=== PATIENT | female | born 1990 | race Caucasian/White ===

== ENCOUNTER 2023-06-02 11:54 | Emergency (ER) | payer OTHER, SELFPAY ==
[2023-06-02] VITALS (10 sets, daily range): BP systolic 105–125; BP diastolic 50–67; PULSE 101–132; RESP 17–23; TEMP 37.1; O2SAT 95–98; BMI 29.8
--- NOTE | 2023-06-02 12:42 | DI.CT.S_ITS ---
PROCEDURE: CT HEAD/BRAIN WO CON INDICATIONS: worst headache of life, patient is 14 weeks TECHNIQUE: Noncontrast 4.5 mm thick angled axial sections acquired from the foramen magnum to the vertex, with coronal and sagittal reformats. For radiation dose reduction, the following was used: automated exposure control, adjustment of mA and/or kV according to patient size. COMPARISON: None. FINDINGS: Image quality: Diagnostic. Evaluation is mildly limited by streak artifact from metallic earrings. CSF spaces: Basal cisterns are patent. No extra-axial fluid collections. Ventricles are normal in size and shape. Brain: No midline shift. No intracranial masses or hemorrhage. Linton-white matter interface is normal. Skull and face: Calvarium and visualized facial bones are intact, without suspicious lesions. Sinuses: Visualized sinuses and mastoids are clear. IMPRESSION: Evaluation is mildly limited by streak artifact from metallic earrings. No acute intracranial pathology. Dictated by: Henry Mcneal M.D. on 06/02/2023 at 13:34 Approved by: Henry Mcneal M.D. on 06/02/2023 at 13:37
[2023-06-02] MEDS: METOCLOPRAMIDE 10 MG/2 ML INJ IV (12:50)
[2023-06-02] MEDS: SODIUM CHLORIDE 0.9% 1,000 ML 1000 ML IV (12:51)
[2023-06-02 12:56] LABS: Add Manual Diff / Slide Review NO; Basophils Absolute Auto 0 /uL (0-100); Basophils Percent Auto 0.3 % (0-2); Eosinophils Absolute Auto 0 /uL (0-450); Eosinophils Percent Auto 0.2 % (2-4); Hematocrit 34.9 % (36-46); Hemoglobin 11.9 g/dL (12.0-16.0); Lymphocytes Absolute Auto 200 /uL (1100-4500); Lymphocytes Percent Auto 3.9 % (25-40); Mean Corpuscular Hemoglobin 29.2 PG (26-34); Mean Corpuscular Volume 85.7 fL (80-100); Monocytes Absolute Auto 200 /uL (0-900); Monocytes Percent Auto 3.6 % (3-14); Neutrophils Absolute Auto 5800 /uL (1500-7000); Platelet Count 129 X10^3/uL (150-400); Red Blood Cell Count 4.07 X10^6/uL (4.0-5.2); Red Cell Distribution Width 14.2 % (11.6-14.8); White Blood Cell Count 6.4 X10^3/uL (4.5-11.0)
--- NOTE | 2023-06-02 13:00 | PC.NURSE ---
Patient reports worst headache of her life, woek with symptoms around 0300. Patient states she had no relief with total of 1000mg tylenol. Patient is 14wks . Discussion with provider, and this RN about risks of CT during . Pt consulted with Mdiwife who encouraged CT. Patient agreeable.
--- NOTE | 2023-06-02 13:03 | ED.HA ---
HPI - Headache <Cristina Acuna PA-C - Last Filed: 06/03/23 11:48> General Chief Complaint: Headache Stated Complaint: severe back pain, pressure on head, dizzy spells Time Seen by Provider: 06/02/23 12:15 Mode of arrival: Wheelchair History of Present Illness HPI Narrative: Patient is a 32-year-old female who presents after sudden onset of worst headache of my life and low back pain at 3:00 a.m. this morning. She has taken Tylenol (500mg) twice since then without any improvement. She drank almost a gallon of water this morning. She reports no ameliorating positions or factors. She endorses mild photophobia, denies tinnitus, blurry vision or double vision. She also endorses a feeling of numbness in her upper thighs. She denies loss of control of bowel or bladder but feels weak in her lower extremities, although was able to walk. She has experienced some nausea but no vomiting. Prior to this she was feeling well and has had no complications in her , seen by intranet support Martha. She denies any history of frequent headaches nor any history of preeclampsia. She denies any abdominal cramping, pain or vaginal discharge or bleeding. She has no urinary symptoms. She denies chest pain, shortness of breath, cough with hemoptysis. No history of blood clots and no lower extremity edema or tenderness. Related Data Allergies Allergy/AdvReac Type Severity Reaction Status Date / Time amoxicillin Allergy Verified 06/02/23 12:00 latex Allergy Verified 06/02/23 12:00 Review of Systems <Cristina Acuna PA-C - Last Filed: 06/03/23 11:48> Review of Systems ROS Unobtainable: All systems reviewed & are unremarkable except as noted in HPI and below Patient History <Cristina Acuna PA-C - Last Filed: 06/03/23 11:48> Social History Smoking Status: Former smoker Smoking Status: Former smoker Exam <Cristina Acuna PA-C - Last Filed: 06/03/23 11:48> Narrative Exam Narrative: GENERAL: 32 year old patient appears stated age. Well-developed patient, in moderate distress. NEURO: Alert and oriented x3, mood/affect normal, normal speech, normal cognition. CN's (II-XII) grossly intact,. No gross motor deficit, 5/5 strength throughout, no gross sensory loss, normal movement, no pronator drift, normal gait. HEAD: Atraumatic. Normocephalic. EYES: Pupils equal round and reactive. Extraocular motions intact. No scleral icterus. No injection or drainage. ENT: Nose without bleeding or purulent drainage. Airway patent. NECK: Trachea midline. Non tender CARDIOVASCULAR: Regular rate and rhythm without murmurs, gallops, or rubs. RESPIRATORY: Clear to auscultation. Breath sounds equal bilaterally. No wheezes, rales, or rhonchi. GASTROINTESTINAL: Abdomen soft, non-tender, nondistended. EXTREMITIES: No edema or joint tenderness. Calves are supple and nontender, nonedematous. SKIN: No rash or erythema of visible areas Initial Vital Signs Initial Vital Signs: Vital Signs Temperature 98.7 F 06/02/23 12:01 Pulse Rate 132 H 06/02/23 12:01 Respiratory Rate 18 06/02/23 12:01 Blood Pressure 125/60 06/02/23 12:01 Pulse Oximetry 97 06/02/23 12:01 Oxygen Delivery Method Room Air 06/02/23 12:01 <Sania Limon DO - Last Filed: 06/07/23 07:25> Initial Vital Signs Initial Vital Signs: Vital Signs Temperature 98.7 F 06/02/23 12:01 Pulse Rate 132 H 06/02/23 12:01 Respiratory Rate 18 06/02/23 12:01 Blood Pressure 125/60 06/02/23 12:01 Pulse Oximetry 97 06/02/23 12:01 Oxygen Delivery Method Room Air 06/02/23 12:01 Scores <Cristina Acuna PA-C - Last Filed: 06/03/23 11:48> Wells' Criteria for PE Clinical signs and symptoms of DVT: No PE is #1 Dx or equally likely: No Heart rate > 100: Yes Immobilization at least 3 days or surg in previous 4 weeks: No History of PE or DVT: No Hemoptysis: No Malignancy w/Treatment within 6 months or palliative: No Wells' PE Score total: 1.5 <Sania Limon DO - Last Filed: 06/07/23 07:25> Wells' Criteria for PE Wells' PE Score total: 1.5 Course <Cristina Acuna PA-C - Last Filed: 06/03/23 11:48> Orders Ordered: Discontinued Medications Acetaminophen (Acetaminophen 325 Mg Tablet) 975 mg PO NOW ONE Stop: 06/02/23 14:24 Last Admin: 06/02/23 14:44 Dose: 975 mg Documented By: DAQUAN Sodium Chloride (Normal Saline 0.9%) 1,000 mls @ 1,000 mls/hr IV BOLUS ONE Stop: 06/02/23 13:35 Last Infusion: 06/02/23 13:52 Dose: Infused Documented By: Admin: 06/02/23 12:51 Dose: 1,000 mls/hr Documented By: ROGELIO Ketorolac Tromethamine (Ketorolac 30 Mg/Ml Vial) 15 mg IV NOW ONE Stop: 06/02/23 14:50 Last Admin: 06/02/23 15:09 Dose: 15 mg Documented By: MICHELL Metoclopramide HCl (Metoclopramide 10 Mg/2 Ml Inj) 10 mg IV NOW ONE Stop: 06/02/23 12:37 Last Admin: 06/02/23 12:50 Dose: 10 mg Documented By: ROGELIO Morphine Sulfate (Morphine 2 Mg/Ml Inj) 2 mg IV NOW ONE Stop: 06/02/23 13:46 Last Admin: 06/02/23 13:49 Dose: 2 mg Documented By: DAQUAN Vital Signs Vital signs: Vital Signs - 8 hr 06/02/23 12:01 06/02/23 12:12 06/02/23 12:12 Temperature 98.7 F Pulse Rate 132 H 124 H Respiratory Rate 18 17 Blood Pressure 125/60 121/63 Pulse Oximetry 97 97 Oxygen Delivery Method Room Air 06/02/23 12:30 06/02/23 12:30 06/02/23 13:06 Temperature Pulse Rate 118 H 120 H Respiratory Rate 21 Blood Pressure 108/54 L Pulse Oximetry 97 98 Oxygen Delivery Method 06/02/23 13:30 06/02/23 13:30 06/02/23 14:00 Temperature Pulse Rate 110 H 103 H Respiratory Rate 21 21 Blood Pressure 105/55 L Pulse Oximetry 98 97 Oxygen Delivery Method Room Air 06/02/23 14:00 06/02/23 14:30 06/02/23 14:30 Temperature Pulse Rate 104 H Respiratory Rate 23 Blood Pressure 118/67 118/62 Pulse Oximetry 96 Oxygen Delivery Method 06/02/23 15:00 06/02/23 15:00 06/02/23 15:30 Temperature Pulse Rate 105 H Respiratory Rate 23 Blood Pressure 114/58 L 116/56 L Pulse Oximetry 97 Oxygen Delivery Method 06/02/23 15:30 06/02/23 16:00 06/02/23 16:00 Temperature Pulse Rate 101 H 104 H Respiratory Rate 22 21 Blood Pressure 110/50 L Pulse Oximetry 95 96 Oxygen Delivery Method <Sania Limon DO - Last Filed: 06/07/23 07:25> Orders Ordered: Discontinued Medications Acetaminophen (Acetaminophen 325 Mg Tablet) 975 mg PO NOW ONE Stop: 06/02/23 14:24 Last Admin: 06/02/23 14:44 Dose: 975 mg Documented By: DAQUAN Sodium Chloride (Normal Saline 0.9%) 1,000 mls @ 1,000 mls/hr IV BOLUS ONE Stop: 06/02/23 13:35 Last Infusion: 06/02/23 13:52 Dose: Infused Documented By: Admin: 06/02/23 12:51 Dose: 1,000 mls/hr Documented By: ROEGLIO Ketorolac Tromethamine (Ketorolac 30 Mg/Ml Vial) 15 mg IV NOW ONE Stop: 06/02/23 14:50 Last Admin: 06/02/23 15:09 Dose: 15 mg Documented By: MICHELL Metoclopramide HCl (Metoclopramide 10 Mg/2 Ml Inj) 10 mg IV NOW ONE Stop: 06/02/23 12:37 Last Admin: 06/02/23 12:50 Dose: 10 mg Documented By: ROGELIO Morphine Sulfate (Morphine 2 Mg/Ml Inj) 2 mg IV NOW ONE Stop: 06/02/23 13:46 Last Admin: 06/02/23 13:49 Dose: 2 mg Documented By: DAQUAN Vital Signs Vital signs: Vital Signs - 8 hr 06/02/23 12:01 06/02/23 12:12 06/02/23 12:12 Temperature 98.7 F Pulse Rate 132 H 124 H Respiratory Rate 18 17 Blood Pressure 125/60 121/63 Pulse Oximetry 97 97 Oxygen Delivery Method Room Air 06/02/23 12:30 06/02/23 12:30 06/02/23 13:06 Temperature Pulse Rate 118 H 120 H Respiratory Rate 21 Blood Pressure 108/54 L Pulse Oximetry 97 98 Oxygen Delivery Method 06/02/23 13:30 06/02/23 13:30 06/02/23 14:00 Temperature Pulse Rate 110 H 103 H Respiratory Rate 21 21 Blood Pressure 105/55 L Pulse Oximetry 98 97 Oxygen Delivery Method Room Air 06/02/23 14:00 06/02/23 14:30 06/02/23 14:30 Temperature Pulse Rate 104 H Respiratory Rate 23 Blood Pressure 118/67 118/62 Pulse Oximetry 96 Oxygen Delivery Method 06/02/23 15:00 06/02/23 15:00 06/02/23 15:30 Temperature Pulse Rate 105 H Respiratory Rate 23 Blood Pressure 114/58 L 116/56 L Pulse Oximetry 97 Oxygen Delivery Method 06/02/23 15:30 06/02/23 16:00 06/02/23 16:00 Temperature Pulse Rate 101 H 104 H Respiratory Rate 22 21 Blood Pressure 110/50 L Pulse Oximetry 95 96 Oxygen Delivery Method MDM - Headache <Cristina Acuna PA-C - Last Filed: 06/03/23 11:48> Lab Data 06/02/23 12:47 06/02/23 12:47 Labs: Lab Results 06/02/23 Range/Units 12:47 WBC 6.4 (4.5-11.0) X10^3/uL RBC 4.07 (4.0-5.2) X10^6/uL Hgb 11.9 L (12.0-16.0) g/dL Hct 34.9 L (36-46) % MCV 85.7 (80-100) fL MCH 29.2 (26-34) PG MCHC 34.0 (30-36) % RDW 14.2 (11.6-14.8) % Plt Count 129 L (150-400) X10^3/uL Neut % (Auto) 92.0 H (50-75) % Lymph % (Auto) 3.9 L (25-40) % Duchesne % (Auto) 3.6 (3-14) % Eos % (Auto) 0.2 L (2-4) % Baso % (Auto) 0.3 (0-2) % Neut # (Auto) 5800 (4060-4638) /uL Lymph # (Auto) 200 L (1000-2171) /uL Duchesne # (Auto) 200 (0-900) /uL Eos # (Auto) 0 (0-450) /uL Baso # (Auto) 0 (0-100) /uL Sodium 133 L (137-145) mmol/L Potassium 3.7 (3.4-5.1) mmol/L Chloride 105 (98-107) mmol/L Carbon Dioxide 23 (22-32) mmol/L BUN 5 L (7-17) mg/dL Creatinine 0.45 L (0.52-1.04) mg/dL Estimated GFR > 60 (>60) mL/min BUN/Creatinine Ratio 11.1 (6-22) Glucose 82 (70-100) mg/dL Calcium 9.1 (8.4-10.2) mg/dL Total Bilirubin 0.4 (0.2-1.3) mg/dL AST 18 (14-36) IU/L ALT 17 (<35) IU/L Alkaline Phosphatase 49 (38-126) U/L Total Protein 7.5 (6.3-8.2) g/dL Albumin 4.2 (3.5-5.0) g/dL Globulin 3.3 (1.7-4.1) g/dL Albumin/Globulin Ratio 1.3 (1.0-2.8) Urine Dip Bedside Urine Glucose Negative Bedside Urine Bilirubin - Negative Bedside Urine Ketone - Negative Urine Specific Wiley 1.020 Bedside Urine Occult Blood - Negative Bedside Urine pH 6.0 Bedside Urine Protein - Negative Bedside Urine Urobilinogen - Negative Bedside Urine Nitrite - Negative Bedside Urine Leukocytes - Negative Esterase Imaging Data CT scan - head: Radiologist's Impression: PROCEDURE: CT HEAD/BRAIN WO CON INDICATIONS: worst headache of life, patient is 14 weeks TECHNIQUE: Noncontrast 4.5 mm thick angled axial sections acquired from the foramen magnum to the vertex, with coronal and sagittal reformats. For radiation dose reduction, the following was used: automated exposure control, adjustment of mA and/or kV according to patient size. COMPARISON: None. FINDINGS: Image quality: Diagnostic. Evaluation is mildly limited by streak artifact from metallic earrings. CSF spaces: Basal cisterns are patent. No extra-axial fluid collections. Ventricles are normal in size and shape. Brain: No midline shift. No intracranial masses or hemorrhage. Linton-white matter interface is normal. Skull and face: Calvarium and visualized facial bones are intact, without suspicious lesions. Sinuses: Visualized sinuses and mastoids are clear. IMPRESSION: Evaluation is mildly limited by streak artifact from metallic earrings. No acute intracranial pathology. Dictated by: Henry Mcneal M.D. on 06/02/2023 at 13:34 Approved by: Henry Mcneal M.D. on 06/02/2023 at 13:37 [facility] Narrative Medical decision making narrative: Multiple etiologies for patient's symptoms considered including, but not limited to: Subarachnoid hemorrhage, migraine, tension headache, meningitis, low back pain, cauda equina, PE Patient has a normal neuro exam but complains of worst headache of life. Advised CT scan of the head, which patient is agreeable to after discussion with her partner and intranet support. Head CT is negative. No red flags for cauda equina, epidural abscess or hematoma. Patient acutely tachycardic on arrival, seems to improve with resting in a dark room and has improved slightly after IV fluids. Wells Criteria for PE is 1.5, low risk. PE considered in the differential given tachycardia and but patient has no chest pain, shortness of breath, lower extremity swelling, history of DVT or other risk factors. Patient's heart rate improves after pain control. I suspect tachycardia related to pain. Labs without clinically significant abnormality; mild thrombocytopenia noted, urine without evidence of infection, mild anemia, sodium 133. Pain better after tylenol, ketorolac (safe before 20 weeks ), morphine, reglan. No indication for OB ultrasound today. Strict return precautions advised. Patient's symptoms improved over duration of stay with above-stated therapies. Findings and discharge diagnosis discussed with patient/family followed by verbalization of understanding Return precautions discussed with patient/family whom verbalize understanding of diagnosis and plan <Sania Limon, DO - Last Filed: 06/07/23 07:25> Lab Data Labs: Lab Results 06/02/23 Range/Units 12:47 WBC 6.4 (4.5-11.0) X10^3/uL RBC 4.07 (4.0-5.2) X10^6/uL Hgb 11.9 L (12.0-16.0) g/dL Hct 34.9 L (36-46) % MCV 85.7 (80-100) fL MCH 29.2 (26-34) PG MCHC 34.0 (30-36) % RDW 14.2 (11.6-14.8) % Plt Count 129 L (150-400) X10^3/uL Neut % (Auto) 92.0 H (50-75) % Lymph % (Auto) 3.9 L (25-40) % Duchesne % (Auto) 3.6 (3-14) % Eos % (Auto) 0.2 L (2-4) % Baso % (Auto) 0.3 (0-2) % Neut # (Auto) 5800 (2005-5640) /uL Lymph # (Auto) 200 L (2094-5758) /uL Duchesne # (Auto) 200 (0-900) /uL Eos # (Auto) 0 (0-450) /uL Baso # (Auto) 0 (0-100) /uL Sodium 133 L (137-145) mmol/L Potassium 3.7 (3.4-5.1) mmol/L Chloride 105 (98-107) mmol/L Carbon Dioxide 23 (22-32) mmol/L BUN 5 L (7-17) mg/dL Creatinine 0.45 L (0.52-1.04) mg/dL Estimated GFR > 60 (>60) mL/min BUN/Creatinine Ratio 11.1 (6-22) Glucose 82 (70-100) mg/dL Calcium 9.1 (8.4-10.2) mg/dL Total Bilirubin 0.4 (0.2-1.3) mg/dL AST 18 (14-36) IU/L ALT 17 (<35) IU/L Alkaline Phosphatase 49 (38-126) U/L Total Protein 7.5 (6.3-8.2) g/dL Albumin 4.2 (3.5-5.0) g/dL Globulin 3.3 (1.7-4.1) g/dL Albumin/Globulin Ratio 1.3 (1.0-2.8) Urine Dip Bedside Urine Glucose Negative Bedside Urine Bilirubin - Negative Bedside Urine Ketone - Negative Urine Specific Wiley 1.020 Bedside Urine Occult Blood - Negative Bedside Urine pH 6.0 Bedside Urine Protein - Negative Bedside Urine Urobilinogen - Negative Bedside Urine Nitrite - Negative Bedside Urine Leukocytes - Negative Esterase Discharge Plan Departure Patient Disposition: Home Clinical Impression: Headache Qualifiers: Headache type: tension-type Headache chronicity pattern: acute headache Intractability: not intractable Qualified Code(s): G44.209 - Tension-type headache, unspecified, not intractable Low back pain Qualifiers: Chronicity: acute Back pain laterality: bilateral Sciatica presence: without sciatica Qualified Code(s): M54.50 - Low back pain, unspecified Instructions: DI for Low Back Pain, DI for Headache Activity Restrictions/Additional Instructions: *You have been diagnosed with headache and low back pain. We did not find any evidence of bleeding in your brain, severe infection, urinary infection or other cause of the pain. I would continue to drink plenty of water, take Tylenol for the headache. We did give you a dose of NSAID while in the emergency room which should help with your pain. If things worsen or you develop new symptoms, please return for reassessment. Please follow up with your primary care/intranet support. *What to do: *Please continue to take your regular medications as directed. [ ] New medication prescriptions sent to your pharmacy: [ ] [ ] New medication written as a paper prescription [x] No new medications given *Please follow up with your primary care provider in 2-3 days, call for an appointment. Let them know you were seen in the Emergency Department and that we ask that you be seen in follow up. We will electronically transmit a record of today's note if your PCP is in our system *If you do not have a primary care provider please contact the [facility] Resource line at [phone]. They will ask some questions about your medical history and help get you set up with a doctor in the community. *Return to Emergency Department if you should have any new, worsening or concerning symptoms, such as [fever greater than 101 F, shaking chills, worsening pain, persistent vomiting or other concerning symptoms]. Stand Alone Forms: Patient Portal/API ED Sign-out <Sania Limon DO - Last Filed: 06/07/23 07:25> Cosign ED Attending Fuad Attestation: I was immediately available in the department for consultation. Case was discussed as well as differential, workup. Patient felt improved afterwards with no other red flag symptoms and felt appropriate for discharge.
[2023-06-02 13:05] LABS: Alanine Aminotransferase 17 IU/L (<35); Albumin 4.2 g/dL (3.5-5.0); Albumin Globulin Ratio 1.3 (1.0-2.8); Alkaline Phosphatase 49 U/L (38-126); Aspartate Aminotransferase 18 IU/L (14-36); BUN Creatinine Ratio 11.1 (6-22); Bilirubin Total 0.4 mg/dL (0.2-1.3); Blood Urea Nitrogen 5 mg/dL (7-17); Calcium 9.1 mg/dL (8.4-10.2); Carbon Dioxide 23 mmol/L (22-32); Chloride 105 mmol/L (98-107); Estimated Glomerular Filt Rate > 60 mL/min (>60); Globulin 3.3 g/dL (1.7-4.1); Glucose 82 mg/dL (70-100); HEMOLYSIS < 15 (0-50); Potassium 3.7 mmol/L (3.4-5.1); Sodium 133 mmol/L (137-145); Total Protein 7.5 g/dL (6.3-8.2)
[2023-06-02] MEDS: MORPHINE 2 MG/ML INJ IV (13:49)
[2023-06-02] MEDS: ACETAMINOPHEN 325 MG TABLET 975 MG PO (14:44)
[2023-06-02] MEDS: KETOROLAC 30 MG/ML VIAL 15 MG IV (15:09)
== END 2023-06-02 16:11 | disposition home or self-care (01) ==
PROVIDERS: Emergency Provider Physician Assistant
DX: G44.209 Tension-type headache, unspecified, not intractable (principal); M54.50 Low back pain, unspecified
CPT/HCPCS: 36415; 70450; 80053; 81003; 82962; 85025; 96361; 96374; 96375; 99284; J1885; J2270; J2765

== ENCOUNTER → 2023-07-23 08:19 | Outpatient (CLI) | payer OTHER, SELFPAY ==
--- NOTE | 2023-07-23 08:21 | DI.US.S_ITS ---
PROCEDURE: US OB >= 14 WEEKS FETUS INDICATIONS: 20WK ANATOMY SCAN OUTSIDE/PRIOR DATING DATA: Last menstrual period (LMP): 02/28/2023. LMP-based estimated date of delivery (IRIS): 12/05/2023. The calculations are made using the clinical IRIS of 12/05/2023. TECHNIQUE: Real-time scanning was performed of the fetus, with image documentation and biometric measurements. Endovaginal scanning: Not performed COMPARISON: None. FINDINGS: General: A single living intrauterine gestation is present. Presentation: Vertex. Placenta: Placental position is anterior, without previa. Amniotic fluid index: 16.9 cm, normal range is 5-24 cm. Single deepest vertical pocket is 4.7 cm. heart rate: 150 beats per minute. Maternal cervical canal: 5.1 cm long. Normal lower limit is 2.5 cm. biometrics: Biparietal diameter: 5.1 cm, 21 weeks 4 days Head circumference: 18.8 cm, 21 weeks 0 days Abdominal circumference: 16.3 cm, 21 weeks 3 days Femur length: 3.6 cm, 21 weeks 3 days Clinically estimated gestational age: 20 weeks 5 days Composite gestational age from present scan: 21 weeks 3 days Estimated weight and percentile: 418 g, 79th percentile Anatomic survey: Neuro: Ventricles are non-dilated at less than 10 mm. Cisterna magna is normal at 3-11 mm. Cerebellum is normal in size and morphology. Nuchal skin fold: Normal at less than 6 mm between 14-21 weeks gestational age. Face: Nose and lips, facial profile are normal. Spine: No evidence for spina bifida. Heart: 4-chambered heart is present, with normal ventricular outflow tracts. Diaphragm: Diaphragm is intact. Stomach: Left-sided stomach is present. Kidneys: No hydronephrosis. Normal is less than 5 mm in 2nd trimester, less than 7 mm in 3rd trimester. Cord: 3-vessel cord has orthotopic insertion. Bladder: Normal in size. Extremities: All 4 extremities identified. IMPRESSION: 1. Serrato living intrauterine at 21 weeks 3 days based on today's ultrasound. Fetus is in the 79th percentile for weight. 2. Normal placenta and amniotic fluid. 3. Normal and complete anatomic survey. We strive to produce accurate, complete, and clear reports of imaging services. To assist us in improving patient care, this report was composed using standard report templates and voice recognition software. Therefore, it may contain abnormal punctuation, insertions and/or omissions. Occasional wrong-word or sound-alike substitutions may occur. Though we review the report and make efforts to correct it, we do recommend that the report be read carefully in proper context to recognize any text inaccuracies. Dictated by: Jose De Jesus Aleman M.D. on 07/23/2023 at 9:41 Approved by: Jose De Jesus Aleman M.D. on 07/23/2023 at 9:44
== END ==
PROVIDERS: Referring Provider Advanced Practice Midwife; Visit Provider Advanced Practice Midwife
DX: Z34.82 Encounter for supervision of other normal pregnancy, second trimester (principal); Z3A.21 21 weeks gestation of pregnancy
CPT/HCPCS: 76811

== ENCOUNTER → 2023-09-15 09:41 | Outpatient (CLI) | payer OTHER, SELFPAY ==
[2023-09-15 10:46] LABS: Add Manual Diff / Slide Review NO; Basophils Absolute Auto 0 /uL (0-100); Basophils Percent Auto 0.4 % (0-2); Eosinophils Absolute Auto 100 /uL (0-450); Eosinophils Percent Auto 1.4 % (2-4); Hematocrit 33.7 % (36-46); Hemoglobin 11.4 g/dL (12.0-16.0); Lymphocytes Absolute Auto 1400 /uL (1100-4500); Lymphocytes Percent Auto 17.1 % (25-40); Mean Corpuscular HGB Conc 33.9 % (30-36); Mean Corpuscular Volume 88.7 fL (80-100); Monocytes Absolute Auto 400 /uL (0-900); Monocytes Percent Auto 5.2 % (3-14); Neutrophils Absolute Auto 6300 /uL (1500-7000); Neutrophils Percent Auto 75.9 % (50-75); Platelet Count 165 X10^3/uL (150-400); Red Cell Distribution Width 14.2 % (11.6-14.8); White Blood Cell Count 8.3 X10^3/uL (4.5-11.0)
[2023-09-15 11:22] LABS: Glucose Fasting 82 mg/dL (70-100)
[2023-09-15 12:07] LABS: Glucose Tol Interpretation INTERPRETATION
[2023-09-15 12:16] LABS: Glucose 1 Hour 172 mg/dL (70-170)
[2023-09-15 12:50] LABS: Glucose 2 Hour 115 mg/dL (70-140)
== END ==
PROVIDERS: Referring Provider Advanced Practice Midwife; Visit Provider Advanced Practice Midwife
DX: Z34.03 Encounter for supervision of normal first pregnancy, third trimester (principal)
CPT/HCPCS: 36415; 82951; 82952; 85025

== ENCOUNTER 2023-11-30 07:12 | Inpatient (IN) | payer OTHER, SELFPAY ==
--- NOTE | 2023-11-30 07:50 | PM.OBHP.1 ---
OB HPI Date/Time Date of admission: 11/30/23 Date Patient Seen: 11/30/23 Time Patient Seen: 07:50 History of Present Condition Chief complaint: induction : 6 Para: 3 ([id number]) Estimated Date of Delivery: 12/05/23 Estimated Gestational Age (weeks): 39.2 Narrative: Kelsie Monroe is a 33 year old female @ 39wks 2days by LMP concordant with 7wk US presents for elective IOL. Seen in clinic yesterday with transcervical Pfeiffer balloon placed. Balloon came out at 2024 and she was able to get some sleep. Continues to feel mild, regular contractions. No vaginal bleeding or leaking of fluid. Uncomplicated care with CNMs. Considering epidural. and oldest daughter are present and supportive. Indications Indication for induction OB: maternal discomfort (elective) History of Present care: good care, initiated at week # (7), number of visits (12) and pounds weight gain (38) Dating criteria: LMP confirmed by 1st trimester US Ultrasounds: normal mid trimester US Obstetrical complications: none Medical complications: none Preadmission Labs Blood type: A (+) positive -: Antibody screen: negative, GBS status: negative, HBsAG: negative, HIV: negative and RPR/VDLR: negative -: Chlamydia screen: not detected and Gonorrhea screen: not detected -: Rubella: not immune and Varicella: not immune HCT: 33.7 HCAB: negative PAP: Normal Cell-free DNA: Negative, XY Narrative: 2hr gtt: 82/172/115 Evaluation Evaluation Baseline heart rate: 135 Variability: Moderate (11-25) monitor accelerations: Present Monitor Decelerations: Absent Contraction Frequency (minutes): 4 Uterine Contraction Intensity: Mild Status: Category l Dilation (cm): 4.5 Effacement (%): 50 station: -2 Position of cervix: posterior PFSH Medical History (Updated 11/30/23 @ 08:01 by Martha Martin CNM) Fibromyalgia Anxiety Surgical History (Updated 11/30/23 @ 08:01 by Martha Martin CNM) H/O dilation and curettage Family History (Updated 11/30/23 @ 08:03 by Martha Martin CNM) Father Hypertension Diabetes mellitus Mother Hypertension Diabetes mellitus Social History (Updated 11/30/23 @ 08:02 by Martha Martin CNM) marital status: number of children: 3 household members: spouse and children lives independently: Yes education level: college occupational status: employed current occupational exposures/hazards: No Smoking Status: Former smoker Meds Home Medications and Allergies Home Medications Medication Instructions Recorded Confirmed Type No Known Home Medications 11/30/23 11/30/23 History Allergies Allergy/AdvReac Type Severity Reaction Status Date / Time amoxicillin Allergy Verified 06/02/23 12:00 latex Allergy Verified 06/02/23 12:00 OB Exam Vital signs Blood Pressure: 135/71 Pulse Rate: 83 Temperature: 97.2 F Resp Effort & Inspection: normal respiratory effort and able to speak in complete sentences Auscultation: clear to auscultation bilaterally Cardio Rate: regular rate Rhythm: regular rhythm Presentation: vertex Objective Labs 11/30/23 08:00 Assessment and Plan Assessment and Plan Assessment and Plan narrative: A: Term multipara Elective IOL No indication for antibioitcs at this time Cat I FHR P: Admit, routine orders. Begin pitocin, titrate per protocol. Labor support PRN. Epidural when requested. Recommend MMR vaccine PP. Time-Based Coding :: [TOTAL MINUTES] spent with patient and on the chart (including review of chart, obtaining history, exam, reviewing outside data, placing orders, documenting exam and treatment plan, and counseling patient) on [DATE].
[2023-11-30 08:11] LABS: Add Manual Diff / Slide Review NO; Basophils Absolute Auto 100 /uL (0-100); Basophils Percent Auto 0.9 % (0-2); Eosinophils Absolute Auto 100 /uL (0-450); Eosinophils Percent Auto 1.8 % (2-4); Hemoglobin 11.5 g/dL (12.0-16.0); Lymphocytes Absolute Auto 1500 /uL (1100-4500); Lymphocytes Percent Auto 21.4 % (25-40); Mean Corpuscular HGB Conc 33.7 % (30-36); Mean Corpuscular Hemoglobin 29.8 PG (26-34); Mean Corpuscular Volume 88.5 fL (80-100); Monocytes Absolute Auto 500 /uL (0-900); Monocytes Percent Auto 6.7 % (3-14); Neutrophils Absolute Auto 4900 /uL (1500-7000); Neutrophils Percent Auto 69.2 % (50-75); Platelet Count 129 X10^3/uL (150-400); Red Blood Cell Count 3.84 X10^6/uL (4.0-5.2); Red Cell Distribution Width 14.6 % (11.6-14.8); White Blood Cell Count 7.1 X10^3/uL (4.5-11.0)
[2023-11-30] MEDS: LACTATED RINGERS 1,000 ML 100 ML IV ×2 (08:12→12:31)
[2023-11-30 08:14] VITALS: BP 135/71; PULSE 83; TEMP 36.2
[2023-11-30] MEDS: OXYTOCIN PREMIX 30 UNIT/500 ML PLAST..BAG IV (08:14)
[2023-11-30] MEDS: CALCIUM CARBONATE 500 MG TAB 1000 MG PO (11:34)
--- NOTE | 2023-11-30 11:37 | PM.OBPNLAB ---
Date/Time Date Patient Seen: 11/30/23 Time Patient Seen: 11:30 Pain Control Pain control: tolerating well Comments: Has been up on the ball and now back in bed. Feeling regular, stronger contractions, still not as strong as with the Pfeiffer balloon. Agreeable to AROM at this time, wants to get things going. and daughter remain supportive at her side. No VB or LOF. VS: BP 126/61, HR 91bpm, T 36.4C Temporal Pelvic Exam Dilation (cm): 5 Effacement (%): 60 station: -2 Amniotic membrane status: Ruptured (AROM, clear) Contractions Pitocin rate (mU/min): 4 Contraction frequency (min): 4 Contraction duration (min): 1 Contraction pattern: Regular Contraction intensity: Moderate Status status: Category l Heart Rate Baseline: 150 Monitor Accelerations: Present Monitor Decelerations: Absent Monitor Variability: Moderate Assessment and Plan Assessment: induction ongoing Plan: continuous present management (continue pitocin titration to adequate contraction pattern) Comments: Labor support, PRN. Epidural when requested. Reassess in 4 hours or sooner, PRN.
--- NOTE | 2023-11-30 12:46 | PM.AN.REGBLK ---
Regional Block Pre-procedure Procedure: Continuous Lumbar Epidural for L&D Attending OB provider: Martha Martin PMH/ROS narrative: here for elective induction with PMH of exercise induced asthma requesting DAVID for labor pain. PSH/Anesthesia history narrative: DAVID x 3 (uncomplicated) for vaginal deliveries. Exam narrative: See pre-anesthesia evaluation form. ASA Class: II Labs: Hct 34.0 % (36-46) L 11/30/23 08:00 Plt Count 129 X10^3/uL (150-400) L 11/30/23 08:00 Medications: Current Medications Generic Name Dose Route Start Last Admin Trade Name Freq PRN Reason Stop Dose Admin Calcium Carbonate 1,000 mg 11/30/23 07:44 11/30/23 11:34 Calcium Carbonate 500 Mg Tab PO 1,000 mg Q2HR PRN Administration Dyspepsia Carboprost Tromethamine 250 mcg 11/30/23 07:44 Carboprost 250 Mcg/Ml Ampul IM Q90M PRN Bleeding Diphenhydramine HCl 25 mg 11/30/23 12:43 Diphenhydramine 50 Mg/Ml Vial IV 12/01/23 12:44 Q3HR PRN PRURITUS Fentanyl 100 mcg 11/30/23 07:44 Fentanyl 100 Mcg/2 Ml Inj IV Q1H PRN Pain, Severe (7-10) Oxytocin/Lactated Ringer's 30 unit in 500 mls @ 200 mls/hr 11/30/23 07:44 Oxytocin Premix IV CONT PRN Bleeding Protocol Tranexamic Acid 1,000 mg/ 100 mls @ 600 mls/hr 11/30/23 07:44 Sodium Chloride IV NOW PRN Bleeding Oxytocin/Lactated Ringer's 30 unit in 500 mls @ 2 mls/hr 11/30/23 07:45 11/30/23 08:14 Oxytocin Premix IV 2 milliunit/min TITRATE SHANTELLE 2 mls/hr Administration Protocol 2 MILLIUNIT/MIN Lactated Ringer's 1,000 mls @ 100 mls/hr 11/30/23 07:45 11/30/23 12:31 Lactated Ringers IV 11/30/23 17:44 100 mls/hr CONT SHANTELLE Administration Lidocaine HCl 20 ml 11/30/23 07:44 Lidocaine 1% 20 Ml INJ INTRA-OP PRN Post Delivery Methylergonovine Maleate 0.2 mg 11/30/23 07:44 Methylergonovine 0.2 Mg Tablet PO Q6HR PRN Heavy Bleeding Methylergonovine Maleate 0.2 mg 11/30/23 07:44 Methylergonovine 0.2 Mg/Ml Vial IM NOW PRN Bleeding Mineral Oil 30 ml 11/30/23 07:44 Mineral Oil 30 Ml Udc TOP PRN PRN Version Misoprostol 800 mcg 11/30/23 07:44 Misoprostol 200 Mcg Tablet NH NOW PRN Bleeding Misoprostol 400 mcg 11/30/23 07:44 Misoprostol 200 Mcg Tablet SL NOW PRN Bleeding Naloxone HCl 0.2 mg 11/30/23 07:44 Naloxone 0.4 Mg/Ml Vial IV Q2MIN PRN Opiate Reversal Naloxone HCl 0.4 mg 11/30/23 12:43 Naloxone 0.4 Mg/Ml Vial IV Q2MIN PRN Opiate Reversal Ondansetron HCl 4 mg 11/30/23 07:44 Ondansetron 4 Mg/2 Ml Inj IV Q4HR PRN Nausea And Vomiting Ondansetron HCl 4 mg 11/30/23 12:43 Ondansetron 4 Mg/2 Ml Inj IV 12/01/23 12:44 Q6HR PRN Nausea Oxytocin 10 unit 11/30/23 07:44 Oxytocin 10 Unit/Ml Vial IM NOW PRN Bleeding Allergies: Allergies Allergy/AdvReac Type Severity Reaction Status Date / Time amoxicillin Allergy Verified 06/02/23 12:00 latex Allergy Verified 06/02/23 12:00 Procedure Insertion date: 11/30/23 Insertion time: 12:20 Prep/Local: 1% lidocaine (CHG to skin, lido 1% (5mL to L3/L4 interspace)) Interspace: L3/L4 Patient position: sitting Needle: 18 gauge Remington Loss of resistance with: saline ROMERO at (cm): 7 Catheter placed at SKIN (cm): 12 Catheter in SPACE (cm): 5 Insertion: No CSF, No Blood, No Paresthesia with insertion, No Paresthesia with injection and No Test dose reaction Initial Medications TEST DOSE time: 12:21 TEST DOSE: 1.5% lidocaine with epinephrine 1:200k (mL): 3 BOLUS DOSE time: 12:25 BOLUS DOSE (mL): 10 BOLUS DOSE med: other (infusate) Infusion INFUSION: 0.125% bupivacaine and with fentanyl 2 mcg/mL Initial rate (mL/hr): 8 Post-procedure Anesthesia date START: 11/30/23 Anesthesia time START: 12:19 Anesthesia date END: 11/30/23 Anesthesia time END: 14:28 Post-procedure Anesthesia Assessment: Yes CV function: HR/BP stable, Yes Resp function: RR/sat/airway adequate, Yes Post-op hydration adequate, Yes Pain control adequate, Yes Nausea & vomiting absent, Yes Temperature > 36 C and Yes Mental status appropriate
[2023-11-30] MEDS: ONDANSETRON 4 MG/2 ML INJ IV (13:52)
[2023-11-30] MEDS: OXYTOCIN PREMIX 30 UNIT/500 ML PLAST..BAG 200 UNIT IV (14:30)
--- NOTE | 2023-11-30 15:06 | PM.OBPRVD ---
Labor & Delivery Delivery date: 11/30/23 Cervical ripening method: per Pfeiffer bulb protocol Induction method: per pitocin protocol Delivery augmentation: rupture of membranes Delivery monitor: external FHT and external uterine Route of delivery: Episiotomy description: None L&D Laceration Description: None Quantitative Blood Loss: 20 Anesthesia Type: Epidural Narrative: Elective IOL with transcervical Pfeiffer balloon catheter, pitocin (max dose 4mu/min) and AROM progressed well. Kelsie received adequate epidural anesthesia. Pushing was initiated at AL/C/0 due to her discomfort with rectal pressure. Short second stage led to NSVB of a vigorous baby girl in MICKY position over an intact perineum. FOB and CNM with hands on at . There was no nuchal cord and the shoulders delivered without additional maneuvers. was lifted to maternal abdomen by FOB. 30 units of pitocin in 500mL LR was started at 300mL/hr for AMTSL. After cessation of pulsation, the cord was double clamped by CNM and cut by Kelsie's oldest daughter. Cord blood hold sample was collected. Gentle cord traaction and a single maternal push led to spontaneous, Schultze delivery of an apparently intact placenta, membranes and 3VC. Fundus immediately firm and bleeding scant. QBL 20mL. Both mother and baby stable and skin to skin as I left the room. [place] Baby 1: gender: Female Presentation: vertex Position: Left Occiput Anterior Placenta delivery description: Spontaneous Cord Vessel Description: 3 Vessels score (1 min): 9 score (5 min): 9 weight: 3.449 kg Plan for aftercare: Routine care
[2023-11-30] MEDS: KETOROLAC 30 MG/ML VIAL IV (17:20)
[2023-11-30] MEDS: ACETAMINOPHEN 325 MG TABLET 650 MG PO (18:17)
[2023-11-30] MEDS: DERMOPLAST SPRAY 20% 60 ML 1 SPRAY TOP (19:45)
[2023-11-30] MEDS: WITCH HAZEL/GLYCERIN PADS 1 EACH TOP (19:45)
[2023-12-01] MEDS: IBUPROFEN 600 MG TABLET PO ×2 (01:02→10:37)
[2023-12-01] MEDS: ACETAMINOPHEN 325 MG TABLET 650 MG PO ×2 (04:01→10:38)
--- NOTE | 2023-12-01 07:19 | P.DS_ITS ---
Discharge Providers Provider Date of admission: 11/30/23 07:12 Discharge Date: 12/01/23 Primary care physician: Vaishali ESCOBAR Provider Consults: 11/30/23 07:44 Consult to Anesthesiology Urgent Comment: Consulting Provider: Choco Lyman Reason for consultation: Epidural Has provider been notified: No 12/01/23 14:59 Consult to Practicing Urologist Routine Comment: Discharge provider: Martha Martin CNM Summary Hospital Course Date Patient Seen: 12/01/23 Time Patient Seen: 07:20 Diagnoses: O80 Hospital Course: Elective IOL with day balloon, pitocin and AROM led to NSVB with no lacerations. PPD1: Stable and feeling ready for discharge. Voiding, ambulating and independently. Tolerating a general diet. Pain is well controlled with PO medication. Vaginal bleeding is not heavy and no clots. Partner is present and supportive. Peripartum Data Infant Delivery Method: Natural Vaginal Laceration Description: None Episiotomy description: None Procedures: O80 complications: none 1: Gender: Female Disposition of : home Discharge Diagnosis (1) Encounter for full-term uncomplicated delivery: Status: Acute Status at Discharge Cognitive/behavioral status at discharge: oriented Functional status at discharge: independent ambulation Overall status at discharge: patient is progressing back to baseline Time Spent with Patient Time attestation: Total time spent providing and/or coordinating discharge services: Objective Labs 11/30/23 08:00 Labs: Laboratory Results - last 24 hr 11/30/23 08:00 WBC 7.1 RBC 3.84 L Hgb 11.5 L Hct 34.0 L MCV 88.5 MCH 29.8 MCHC 33.7 RDW 14.6 Plt Count 129 L Neut % (Auto) 69.2 Lymph % (Auto) 21.4 L [place] % (Auto) 6.7 Eos % (Auto) 1.8 L Baso % (Auto) 0.9 Neut # (Auto) 4900 Lymph # (Auto) 1500 [place] # (Auto) 500 Eos # (Auto) 100 Baso # (Auto) 100 Blood Type A Positive Antibody Screen Negative Exam Vital Signs (past 8 hours): BP 118/72, HR 62bpm, RR 18, T 98.7F Temporal Other: Fundus firm @ U-1, lochia light to moderate, no clots. Perineum intact. Discharge Plan Discharge Plan Patient Disposition: Home Discharge orders & Medications Prescriptions: New ibuprofen 600 mg Tablet 600 mg PO Q6HR PRN (Reason: Pain, Mild (1-3)) 14 Days Qty: 60 0RF Follow up/Referrals: ProviderVaishali [Primary Care Provider] - Martha Martin CNM [[facility] Therapist] - (2week and 6 week follow-up appointments scheduled and in your email) Diet/Activity/Treatments Diet: Diet as Tolerated and Regular Activity: bed rest x 2 weeks, no heavy lifting x 4 weeks. Pelvic rest until after bleeding stops and to your comfort. Skin/Wound/Dressing Care Report to your healthcare provider any signs of infection, such as:: chills, fever, increased pain, unusual drainage and unusual redness Visit Report/Discharge Packet Instructions: Depression Stand Alone Forms: Patient Portal/API, Stroke Signs & Symptoms Discharge Data Primary Care Provider: ProviderVaishali
[2023-12-01] MEDS: DOCUSATE 100 MG CAPSULE 200 MG PO (10:37)
[2023-12-01] MEDS: LANOLIN OINT 7 GM 1 APPLIC TOP (10:38)
[2023-12-01] MEDS: WITCH HAZEL/GLYCERIN PADS 1 EACH TOP (11:08)
== END 2023-12-01 13:25 | disposition home or self-care (01) | DRG 807 ==
PROVIDERS: Admitting Provider Nurse Practitioner Obstetrics & Gynecology; Referring Provider Nurse Practitioner Obstetrics & Gynecology; Visit Provider Nurse Practitioner Obstetrics & Gynecology
DX: O80 Encounter for full-term uncomplicated delivery (principal); Z37.0 Single live birth; Z3A.39 39 weeks gestation of pregnancy
CPT/HCPCS: 36415; 59050; 85025; 86850; 86900; 86901; G0379; J1885; J2405; J2590

== ENCOUNTER → 2024-12-06 08:00 | Outpatient (CLI) | payer OTHER, SELFPAY ==
--- NOTE | 2024-12-06 | DI.MRI.S_ITS ---
PROCEDURE: MR SHOULDER LT W CON INDICATIONS: R/o labral injury TECHNIQUE: After the administration of 12 mL of dilute intra-articular Gadolinium contrast, oblique coronal T1 and T2 spin echo with fat saturation, oblique sagittal T1 spin echo with and without fat saturation, oblique sagittal T2 fast spin echo with fat saturation, axial T1 spin echo with fat saturation through the shoulder. COMPARISON: [facility], , [place] ARTHROGRAM SHOULDER LT, 12/06/2024, 7:24. FINDINGS: Image quality: Excellent. Rotator cuff: Mild supraspinatus tendinosis. The infraspinatus and teres minor tendons are intact. Contrast material within the distal subscapularis tendon may be secondary to the arthrogram injection versus partial articular sided tearing. The rotator cuff musculature is normal in bulk. Bones and bursae: No acute trabecular bone injury or fracture. Small chronic traction cystic changes at the posterior superior humeral head. No focal cartilage defect in the glenohumeral joint. Acromioclavicular joint is normally aligned. Trace noncommunicating fluid in the subacromial/subdeltoid bursa. No intra-articular filling defect in the glenohumeral joint. Capsule and soft tissues: Focal uptake of intra-articular contrast material the anterior superior labrum with smooth margins is favored to represent a normal sublabral foramen rather than a labral tear. Proximal biceps long head tendon is intact. Glenohumeral ligaments are intact. IMPRESSION: 1. Contrast material along the distal subscapularis tendon may be related to the arthrogram injection versus secondary to low-grade partial articular sided tearing. 2. Mild supraspinatus tendinosis. No full-thickness rotator cuff tendon tear. 3. Focal uptake of contrast material at the anterior superior labrum with smooth margins is favored to represent a normal variant sublabral foramen rather than a labral tear. The remainder the labrum is intact. 4. Proximal biceps long head tendon is intact. No acute trabecular bone injury. Approved by: Sony Page M.D. on 12/06/2024 at 11:17
--- NOTE | 2024-12-06 | DI.RAD.S_ITS ---
PROCEDURE: [place] ARTHROGRAM SHOULDER LT INDICATIONS: R/o labral injury COMPARISON: None. TECHNIQUE: The indications, alternatives, benefits, risks, and complications of the procedure were explained to the patient. Written informed consent was obtained and placed in the chart. The shoulder was examined fluoroscopically and a site for needle placement chosen for entry into the glenohumeral joint from an anterior approach. The skin was prepped and draped in a sterile fashion, and 1% lidocaine infiltrated from skin down to joint capsule. A spinal needle was inserted into the glenohumeral joint, and a small amount of iodinated contrast media injected to confirm intra-articular placement of the needle tip. This was followed by approximately 12 mL dilute solution of a gadolinium containing MR contrast agent. The needle was removed and a dressing was applied. The patient was given postprocedural instructions and sent to the MR suite for MR imaging. FINDINGS: A single fluoroscopic spot image demonstrates intra-articular location of injected iodinated contrast. IMPRESSION: Successful fluoroscopically guided administration of dilute Gadolinium solution into the shoulder joint for MR arthrogram. Dictated by: Benjie Spence M.D. on 12/06/2024 at 10:29 Approved by: Benjie Spence M.D. on 12/06/2024 at 10:29
[2024-12-06] MEDS: LIDOCAINE 1% 20 ML INJ (09:08)
[2024-12-06] MEDS: SODIUM CHLORIDE 0.9 % 20 ML VIAL IV (09:09)
== END ==
PROVIDERS: Visit Provider Physician Assistant
DX: M25.512 Pain in left shoulder (principal)
CPT/HCPCS: 23350; 73040; 73222; A9579; Q9967